=== PATIENT | male | born 1970 | race Caucasian/White ===

== ENCOUNTER 2020-05-20 10:35 | Emergency (ER) | payer OTHER ==
[2020-05-20 13:18] LABS: HEMOGLOBIN 15.4 gm/dl (14.0-17.5); RED BLOOD COUNT 5.8 M/UL (4.20-5.50); WHITE BLOOD COUNT 11.2 K/UL (4.5-11.0)
[2020-05-20 13:45] LABS: BUN/CREATININE RATIO 13 (0-10)
[2020-05-20] MEDS ORDERED: HYDROCHLOROTH12.5 MG PO (15:04)
[2020-05-20] MEDS ORDERED: BACTROBAN OINT22 GM EXT (15:08)
[2020-05-20] MEDS ORDERED: CEPHALEXIN500 MG PO (15:08)
== END 2020-05-20 17:24 | disposition home or self-care (01) ==
LOC: ER1 10:35
PROVIDERS: Emergency Medicine
DX: S00.85XA Superficial foreign body of other part of head, initial encounter (principal); E11.9 Type 2 diabetes mellitus without complications; I10 Essential (primary) hypertension; W45.8XXA Other foreign body or object entering through skin, initial encounter
CPT/HCPCS: 71045; 80053; 80307; 81001; 82550; 82553; 83874; 84484; 85025; 93005; 96374; 96375; 96376; 99284; J0360; J2060; J7030